=== PATIENT | female | born 1990 | race Caucasian/White ===

== ENCOUNTER 2024-03-12 14:45 | Emergency (ER) | payer OTHER ==
[2024-03-12 15:11] VITALS: TEMP 98.3
--- NOTE | 2024-03-12 16:23 | ED ---
Abdominal Pain HPI - General Source: patient, RN notes reviewed Mode of arrival: ambulatory Limitations: no limitations <Acacia Hubbard - Last Filed: 03/12/24 16:26> - General Source: patient, RN notes reviewed Mode of arrival: ambulatory Limitations: no limitations <Fatemeh Delgado - Last Filed: 03/16/24 11:54> - General Chief Complaint: Abdominal Pain Stated Complaint: Back pain, ABD Pain Time Seen by Provider: 03/12/24 15:00 - History of Present Illness Initial Comments: Quick noteis a 33-year-old female who presents emergency department chief complaint of abdominal and back pain. Patient states that she also is experiencing a large amount of vaginal bleeding that started this afternoon, and her last menstrual cycle was 1.5 weeks ago. Patient has a history of 3 spontaneous abortions and 2 stillbirths. (Acacia Hubbard) 33-year-old female presents to the emergency department for evaluation of pelvic pain and right-sided back pain starting just prior to arrival. She states that the pain came on fairly suddenly if she started having vaginal bleeding. Patient reports that she just had a menstrual period 1-1/2 weeks ago it is concerned because she is not due to be after cycle. She is currently on oral contraceptives to help with period regulation. She has significant gynecological history including 3 spontaneous abortions, 2 stillbirth, right- sided ovarian torsion. She states that the pain today does not resemble her prior torsion. She denies fever, chills, nausea, vomiting. (Fatemeh Delgado) - Related Data Allergies Allergy/AdvReac Type Severity Reaction Status Date / Time tramadol Allergy Anaphylaxis Verified 03/12/24 14:49 Review of Systems ROS Other: All systems not noted in ROS Statement are negative. <Acacia Hubbard - Last Filed: 03/12/24 16:26> ROS Other: All systems not noted in ROS Statement are negative. <Fatemeh Delgado - Last Filed: 03/16/24 11:54> ROS Statement: Those systems with pertinent positive or pertinent negative responses have been documented in the HPI. Past Medical History Past Medical History: Asthma, Diabetes Mellitus, Hypertension Additional Past Medical History / Comment(s): PTOS History of Any Multi-Drug Resistant Organisms: None Reported Past Surgical History: Tubal Ligation Past Psychological History: No Psychological Hx Reported Smoking Status: Current some day smoker Past Alcohol Use History: None Reported Past Drug Use History: None Reported <Klaudia Hubbardoe - Last Filed: 03/12/24 16:26> General Exam Limitations: no limitations <Klaudia Hubbardoe - Last Filed: 03/12/24 16:26> Limitations: no limitations General appearance: alert, in no apparent distress Head exam: Present: atraumatic, normocephalic, normal inspection Eye exam: Present: normal appearance, PERRL, EOMI. Absent: scleral icterus, conjunctival injection, periorbital swelling ENT exam: Present: normal exam, mucous membranes moist Neck exam: Present: normal inspection. Absent: tenderness, meningismus, l ymphadenopathy Respiratory exam: Present: normal lung sounds bilaterally. Absent: respiratory distress, wheezes, rales, rhonchi, stridor Cardiovascular Exam: Present: regular rate, normal rhythm, normal heart sounds. Absent: systolic murmur, diastolic murmur, rubs, gallop, clicks GI/Abdominal exam: Present: soft, normal bowel sounds. Absent: distended, tenderness, guarding, rebound, rigid External exam: Present: normal external exam Speculum exam: Present: vaginal bleeding. Absent: laceration By manual exam: Present: normal by manual exam Extremities exam: Present: normal inspection, full ROM, normal capillary refill. Absent: tenderness, pedal edema, joint swelling, calf tenderness Back exam: Present: normal inspection Neurological exam: Present: alert, oriented X3 Psychiatric exam: Present: normal affect, normal mood Skin exam: Present: warm, dry, intact, normal color. Absent: rash <Fatemeh Delgado - Last Filed: 03/16/24 11:54> - General Exam Comments Initial Comments: Visual Physical Exam Vital signs reviewed General: Well-appearing, nontoxic, no acute distress. Head: Normocephalic, atraumatic Eyes: PERRLA, EOMI ENT: Airway patent Chest: Nonlabored breathing Skin: No visual rash, normal skin tone Neuro: Alert and oriented 3 Musculoskeletal: No gross abnormalities (Stieler,Acacia) Course Vital Signs 03/12/24 03/12/24 14:47 20:25 Temperature 98.3 F Pulse Rate 106 H 83 Respiratory 20 18 Rate Blood Pressure 161/104 155/104 O2 Sat by Pulse 99 99 Oximetry Medical Decision Making <Acacia Hubbard - Last Filed: 03/12/24 16:26> - Lab Data Result diagrams: 03/12/24 16:45 03/12/24 16:45 <Fatemeh Delgado - Last Filed: 03/16/24 11:54> - Medical Decision Making I completed the quick note portion of this chart signed Acacia Hubbard PA-C (Acacia Hubbard) Was pt. sent in by a medical professional or institution (KRISTIAN Madison, MANAGER CATH LAB, urgent care, hospital, or intermediate...) When possible be specific @ -No Did you speak to anyone other than the patient for history (EMS, parent, family, police, friend...)? What history was obtained from this source @ -No Did you review nursing and triage notes (agree or disagree)? Why? @ -I reviewed and agree with nursing and triage notes Were old charts reviewed (outside hosp., previous admission, EMS record, old EKG, old radiological studies, urgent care reports/EKG's, intermediate records)? Report findings @ -No old charts were reviewed Differential Diagnosis (chest pain, altered mental status, abdominal pain women, abdominal pain men, vaginal bleeding, weakness, fever, dyspnea, syncope, headache, dizziness, GI bleed, back pain, seizure, CVA, palpatations, mental health, musculoskeletal)? @ -Differential Vaginal Bleeding: Spontaneous , threatened , molar , ectopic , bloody show, incompetent cervix, abruptioplacenta, placenta previa, uterine rupture, dysfunctional uterine bleeding, hemorrhage, uterine fibroids, this is not meant to be an all-inclusive list. EKG interpreted by me (3pts min.). @ -None X-rays interpreted by me (1pt min.). @ -None done CT interpreted by me (1pt min.). @ -None done U/S interpreted by me (1pt. min.). @ -Pelvic ultrasound obtained which shows no evidence of torsion or free fluid What testing was considered but not performed or refused? (CT, X-rays, U/S, labs)? Why? @ -None What meds were considered but not given or refused? Why? @ -None Did you discuss the management of the patient with other professionals (professionals i.e. KRISTIAN Madison, MANAGER CATH LAB, lab, RT, psych nurse, director of social work, paint grinder [employer], teacher, surveillance officer, shelter case manager)? Give summary @ -Management discussed with CADD OPERATOR, Dr. Abad who believes patient can follow up in the office. Was smoking cessation discussed for >3mins.? @ -No Was critical care preformed (if so, how long)? @ -No Were there social determinants of health that impacted care today? How? (Homelessness, low income, unemployed, alcoholism, drug addiction, transportation, low edu. Level, literacy, decrease access to med. care, skilled nursing, rehab)? @ -No Was there de-escalation of care discussed even if they declined (Discuss DNR or withdrawal of care, Hospice)? DNR status @ -No What co-morbidities impacted this encounter? (DM, HTN, Smoking, COPD, CAD, Cancer, CVA, ARF, Chemo, Hep., AIDS, mental health diagnosis, sleep apnea, morbid obesity)? @ -None Was patient admitted / discharged? Hospital course, mention meds given and route, prescriptions, significant lab abnormalities, going to OR and other pertinent info. @ -Discharge. Patient presented to the emergency department for evaluation of vaginal bleeding and lower abdominal pain. Laboratory studies obtained Which shows WBC of 12.0; CMP shows very mild transaminitis With normal bilirubin, creatinine 0.75; UA shows trace protein, 2+ glucose, moderate blood likely from vaginal origin. Urine hCG negative. Pelvic ultrasound was obtained which rep orts no evidence of torsion, arterial blood flow present on the right but states that they were unable to assess venous blood flow on the right. Because of this discussed the case with CADD OPERATOR, Dr. Abad, who states that she believes the patient is stable for outpatient follow-up. Discussed findings with patient and advised her to follow-up with her CADD OPERATOR. Patient is understanding agreeable with this plan. Patient stable at time of discharge. Case discussed with Dr. Lenz Undiagnosed new problem with uncertain prognosis? @ -No Drug Therapy requiring intensive monitoring for toxicity (Heparin, Nitro, Insulin, Cardizem)? @ -No Were any procedures done? @ -No Diagnosis/symptom? @ -Vaginal bleeding, abdominal cramping Acute, or Chronic, or Acute on Chronic? @ -Acute Uncomplicated (without systemic symptoms) or Complicated (systemic symptoms)? @ -Uncomplicated Side effects of treatment? @ -No Exacerbation, Progression, or Severe Exacerbation? @ -No Poses a threat to life or bodily function? How? (Chest pain, USA, [place], pneumonia, PE, COPD, DKA, ARF, appy, cholecystitis, CVA, Diverticulitis, Homicidal, Suicidal, threat to staff... and all critical care pts) @ -No (Fatemeh Delgado) - Lab Data Lab Results 03/12/24 03/12/24 03/12/24 Range/Units 16:45 16:45 16:45 WBC 12.0 H (3.8-10.6) k/uL RBC 5.38 (3.80-5.40) m/uL Hgb 15.3 (11.4-16.0) gm/dL Hct 46.8 H (34.0-46.0) % MCV 87.0 (80.0-100.0) fL MCH 28.4 (25.0-35.0) pg MCHC 32.7 (31.0-37.0) g/dL RDW 13.6 (11.5-15.5) % Plt Count 251 (150-450) k/uL MPV 8.0 Neutrophils % 68 % Lymphocytes % 21 % Monocytes % 4 % Eosinophils % 3 % Basophils % 1 % Neutrophils # 8.2 H (1.3-7.7) k/uL Lymphocytes # 2.6 (1.0-4.8) k/uL Monocytes # 0.5 (0-1.0) k/uL Eosinophils # 0.4 (0-0.7) k/uL Basophils # 0.1 (0-0.2) k/uL Sodium (137-145) mmol/L Potassium (3.5-5.1) mmol/L Chloride (98-107) mmol/L Carbon Dioxide (22-30) mmol/L Anion Gap mmol/L BUN (7-17) mg/dL Creatinine (0.52-1.04) mg/dL Est GFR (CKD-EPI)AfAm (>60 ml/min/1.73 sqM) Est GFR (CKD-EPI)NonAf (>60 ml/min/1.73 sqM) Glucose (74-99) mg/dL POC Glucose (mg/dL) (70-110) mg/dL POC Glu Snuff Grinder ID Calcium (8.4-10.2) mg/dL Total Bilirubin (0.2-1.3) mg/dL AST (14-36) U/L ALT (4-34) U/L Alkaline Phosphatase (38-126) U/L Total Protein (6.3-8.2) g/dL Albumin (3.5-5.0) g/dL Urine Color Yellow Urine Appearance Clear (Clear) Urine pH 5.5 (5.0-8.0) Ur Specific [place] 1.029 (1.001-1.035) Urine Protein Trace H (Negative) Urine Glucose (UA) 2+ H (Negative) Urine Ketones Negative (Negative) Urine Blood Moderate H (Negative) Urine Nitrite Negative (Negative) Urine Bilirubin Negative (Negative) Urine Urobilinogen <2.0 (<2.0) mg/dL Ur Leukocyte Esterase Negative (Negative) Urine RBC >182 H (0-5) /hpf Urine WBC 2 (0-5) /hpf Ur Squamous Epith Cells 2 (0-4) /hpf Hyaline Casts 1 (0-2) /lpf Urine Mucus Few H (None) /hpf Urine HCG, Qual Not Detected (Not Detectd) 03/12/24 03/12/24 Range/Units 16:45 17:19 WBC (3.8-10.6) k/uL RBC (3.80-5.40) m/uL Hgb (11.4-16.0) gm/dL Hct (34.0-46.0) % MCV (80.0-100.0) fL MCH (25.0-35.0) pg MCHC (31.0-37.0) g/dL RDW (11.5-15.5) % Plt Count (150-450) k/uL MPV Neutrophils % % Lymphocytes % % Monocytes % % Eosinophils % % Basophils % % Neutrophils # (1.3-7.7) k/uL Lymphocytes # (1.0-4.8) k/uL Monocytes # (0-1.0) k/uL Eosinophils # (0-0.7) k/uL Basophils # (0-0.2) k/uL Sodium 139 (137-145) mmol/L Potassium 4.3 (3.5-5.1) mmol/L Chloride 110 H (98-107) mmol/L Carbon Dioxide 20 L (22-30) mmol/L Anion Gap 9 mmol/L BUN 11 (7-17) mg/dL Creatinine 0.75 (0.52-1.04) mg/dL Est GFR (CKD-EPI)AfAm >90 (>60 ml/min/1.73 sqM) Est GFR (CKD-EPI)NonAf >90 (>60 ml/min/1.73 sqM) Glucose 120 H (74-99) mg/dL POC Glucose (mg/dL) 117 H (70-110) mg/dL POC Glu Snuff Grinder Anastacio Crum Calcium 9.5 (8.4-10.2) mg/dL Total Bilirubin 0.7 (0.2-1.3) mg/dL AST 40 H (14-36) U/L ALT 44 H (4-34) U/L Alkaline Phosphatase 62 (38-126) U/L Total Protein 7.3 (6.3-8.2) g/dL Albumin 4.3 (3.5-5.0) g/dL Urine Color Urine Appearance (Clear) Urine pH (5.0-8.0) Ur Specific [place] (1.001-1.035) Urine Protein (Negative) Urine Glucose (UA) (Negative) Urine Ketones (Negative) Urine Blood (Negative) Urine Nitrite (Negative) Urine Bilirubin (Negative) Urine Urobilinogen (<2.0) mg/dL Ur Leukocyte Esterase (Negative) Urine RBC (0-5) /hpf Urine WBC (0-5) /hpf Ur Squamous Epith Cells (0-4) /hpf Hyaline Casts (0-2) /lpf Urine Mucus (None) /hpf Urine HCG, Qual (Not Detectd) Disposition <Acacia Hubbard - Last Filed: 03/12/24 16:26> Is patient prescribed a controlled substance at d/c from ED?: No <Fatemeh Delgado - Last Filed: 03/16/24 11:54> Clinical Impression: Vaginal bleeding, Pelvic pain Disposition: HOME SELF-CARE Condition: Stable Instructions (If sedation given, give patient instructions): Pelvic Pain in Women (ED) Additional Instructions: Please follow up with CADD OPERATOR. Return to the emergency department for new or worsening symptoms. Referrals: Nonstaff,Physician [Primary Care Provider] - 1-2 days
[2024-03-12 17:26] LABS: Glucose,Whole Blood 117 mg/dL (70-110)
[2024-03-12 17:40] LABS: Basophils # (A) 0.1 k/uL (0-0.2); Basophils % (A) 1 %; Eosinophils # (A) 0.4 k/uL (0-0.7); Eosinophils % (A) 3 %; HCT 46.8 % (34.0-46.0); HGB 15.3 gm/dL (11.4-16.0); Lymphocytes # (A) 2.6 k/uL (1.0-4.8); Lymphocytes % (A) 21 %; MCH 28.4 pg (25.0-35.0); MCHC 32.7 g/dL (31.0-37.0); Monocytes # (A) 0.5 k/uL (0-1.0); Monocytes % (A) 4 %; Neutrophils # (A) 8.2 k/uL (1.3-7.7); Neutrophils % (A) 68 %; Platelet Count 251 k/uL (150-450); RBC 5.38 m/uL (3.80-5.40); RDW 13.6 % (11.5-15.5)
--- NOTE | 2024-03-12 17:52 | US ---
EXAMINATION TYPE: US pelvis complete transvag DATE OF EXAM: 03/12/2024 COMPARISON: NONE CLINICAL INDICATION: Female, 33 years old with history of vaginal bleeding, history of ; Blee ding x 1 day TECHNIQUE: Transvaginal ER exam Date of LMP: 1 weeks ago EXAM MEASUREMENTS: Uterus: 7.7 x 5.2 x 6.3 cm Endometrial Stripe: 1.1 cm Right Ovary: 3.2 x 3.2 x 2.5 cm Left Ovary: 4.2 x 3.4 x 2.9 cm 1. Uterus: retroverted, mildly heterogeneous 2. Endometrium: thickened for patient's LMP 3. Right Ovary: wnl 4. Left Ovary: wnl Spectral, color and waveform doppler imaging shows good arterial and venous flow within the left ov maco and good arterial flow within the right ovary, unable to obtain venous flow within the right ovar y. 5. Bilateral Adnexa: wnl 6. Posterior cul-de-sac: wnl IMPRESSION: 1. Normal uterus and endometrium. 2. No adnexal masses or torsion. 3. No free fluid in the cul-de-sac
[2024-03-12 18:00] LABS: ALT 44 U/L (4-34); AST 40 U/L (14-36); African American GFR (CKD) >90 (>60 ml/min/1.73 sqM); Albumin 4.3 g/dL (3.5-5.0); Alkaline Phosphatase 62 U/L (38-126); Anion Gap 9 mmol/L; Blood Urea Nitrogen 11 mg/dL (7-17); Calcium 9.5 mg/dL (8.4-10.2); Carbon Dioxide 20 mmol/L (22-30); Chloride 110 mmol/L (98-107); Glucose 120 mg/dL (74-99); Non-African American GFR(CKD) >90 (>60 ml/min/1.73 sqM); Potassium 4.3 mmol/L (3.5-5.1); Sodium 139 mmol/L (137-145); Total Bilirubin 0.7 mg/dL (0.2-1.3); Total Protein 7.3 g/dL (6.3-8.2)
[2024-03-12 18:09] LABS: Appearance,Urine Clear (Clear); Bilirubin,Urine Negative (Negative); Blood,Urine Moderate (Negative); Color,Urine Yellow; Glucose,Urine (UA) 2+ (Negative); Hyaline Casts,Urine 1 /lpf (0-2); Ketones,Urine Negative (Negative); Leukocyte Esterase,Urine Negative (Negative); Mucus,Urine Few /hpf; Nitrite,Urine Negative (Negative); PH, Urine 5.5 (5.0-8.0); Protein,Urine Trace (Negative); RBC,Urine >182 /hpf (0-5); Specific Gravity,Urine 1.029 (1.001-1.035); Squamous Epithelial Cell,Urine 2 /hpf (0-4); Urobilinogen,Urine <2.0 mg/dL (<2.0); WBC,Urine 2 /hpf (0-5)
[2024-03-12] MEDS: ACETAMINOPHEN TAB 500 MG TAB PO STA (18:11)
[2024-03-12] MEDS: ONDANSETRON 4 MG/2 ML VIAL IVP STA (18:11)
[2024-03-12] MEDS: LIDOCAINE 4% PATCH TOPICAL ONE (18:12)
[2024-03-12] MEDS: SODIUM CHLORIDE 0.9% 2,000 ML IV ONE (18:13)
[2024-03-12 21:05] VITALS: BP 155/104; PULSE 83; RESP 18
== END 2024-03-12 20:36 | disposition home or self-care (01) ==
LOC: EC 14:45
DX: N93.9 Abnormal uterine and vaginal bleeding, unspecified (principal); F17.200 Nicotine dependence, unspecified, uncomplicated; Z88.5 Allergy status to narcotic agent
CPT/HCPCS: 36415; 76830; 80053; 81001; 81025; 85025; 93975; 96361; 96374; 99284

== ENCOUNTER 2025-05-17 13:08 | Emergency (ER) | payer OTHER ==
[2025-05-17 13:38] VITALS: BP 157/94; PULSE 90; RESP 16; TEMP 98.5
--- NOTE | 2025-05-17 13:38 | ED ---
General Adult HPI - General Stated complaint: Abd Pain Time Seen by Provider: 05/17/25 13:35 - History of Present Illness Initial comments: Dictation was produced using [employer] dictation software. please excuse any grammatical, word or spelling errors. Chief Complaint: 35-year-old female with ovarian pain History of Present Illness: Patient 35-year-old female with history of right ovarian cyst. Most recent ultrasound was April 04. She states that she has a ovarian cyst that measured at 7 cm. States that this episode has been going for the last few days. No fever chills or night sweats. Still has her appendix. Denies any fever chills or night sweats. Patient is dissatisfied with her senior production planner because she allegedly does not qualify for oophorectomy surgery. The ROS documented in this emergency department record has been reviewed and c onfirmed by me. Those systems with pertinent positive or negative responses have been documented in the HPI. All other systems are other negative and/or noncontributory. - Related Data Previous Rx's Medication Instructions Recorded HYDROcodone/APAP 5-325MG [Snelling 1 tab PO Q6HR PRN 3 Days #12 tab 05/17/25 5-325] Allergies Allergy/AdvReac Type Severity Reaction Status Date / Time tramadol Allergy Anaphylaxis Verified 03/12/24 14:49 Review of Systems ROS Statement: Those systems with pertinent positive or pertinent negative responses have been documented in the HPI. ROS Other: All systems not noted in ROS Statement are negative. Past Medical History Past Medical History: Asthma, Diabetes Mellitus, Hypertension Additional Past Medical History / Comment(s): PTOS History of Any Multi-Drug Resistant Organisms: None Reported Past Surgical History: Tubal Ligation Past Psychological History: No Psychological Hx Reported Smoking Status: Current some day smoker Past Alcohol Use History: None Reported Past Drug Use History: None Reported General Exam - General Exam Comments Initial Comments: PHYSICAL EXAM: General Impression: Alert and oriented x3, not in acute distress HEENT: Normocephalic atraumatic, extra-ocular movements intact, pupils equal and reactive to light bilaterally, mucous membranes moist. Cardiovascular: Heart regular rate and rhythm Chest: Able to complete full sentences, no retractions, no tachypnea Abdomen: abdomen soft, tenderness at right lower quadrant, non-distended, no organomegaly Musculoskeletal: Pulses present and equal in all extremities, no peripheral edema Motor: no focal deficits noted Neurological: CN II-XII grossly intact, no focal motor or sensory deficits noted Skin: Intact with no visualized rashes Psych: Normal affect and mood Course Vital Signs 05/17/25 13:36 Temperature 98.5 F Pulse Rate 90 Respiratory 16 Rate Blood Pressure 157/94 O2 Sat by Pulse 99 Oximetry Medical Decision Making - Medical Decision Making Was pt. sent in by a medical professional or institution (, PA, CORPORATE LAW ASSISTANT, urgent care, hospital, or [facility]...) When possible be specific @ -No Did you speak to anyone other than the patient for history (EMS, parent, family, police, friend...)? What history was obtained from this source @ -No Did you review nursing and triage notes (agree or disagree)? Why? @ -I reviewed and agree with nursing and triage notes Were old charts reviewed (outside hosp., previous admission, EMS record, old EKG, old radiological studies, urgent care reports/EKG's, [facility] records)? Report findings @ -No old charts were reviewed Differential Diagnosis (chest pain, altered mental status, abdominal pain women, abdominal pain men, vaginal bleeding, musculoskeletal, weakness, fever, dyspnea, syncope, headache, dizziness, GI bleed, back pain, seizure, CVA, palpatations, mental health)? @ -Abdominal Pain Women: Appendicitis, Cholecystitis, diverticulosis, ischemic bowel, pancreatitis, hepatitis, UTI, gastroenteritis, AAA, incarcerated hernia, bowel obstruction, constipation, inflammatory bowel, hepatitis, peptic ulcer disease, splenic infarction, perforated viscus, vulvitis, ovarian torsion, PID, kidney stone, placenta abruption, this is not meant to be an all-inclusive list EKG interpreted by me (3pts min.). @ -None done X-rays interpreted by me (1pt min.). @ -None done CT interpreted by me (1pt min.). @ -None done U/S interpreted by me (1pt. min.). @ -Ultrasound shows 2 cm right ovarian cyst What testing was considered but not performed or refused? (CT, X-rays, U/S, labs)? Why? @ -None What meds were considered but not given or refused? Why? @ -None Was smoking cessation discussed for >3mins.? @ -No Were there social determinants of health that impacted care today? How? (Homelessness, low income, unemployed, alcoholism, drug addiction, transportation, low edu. Level, literacy, decrease access to med. care, custodial, rehab)? @ -No Was there de-escalation of care discussed even if they declined (Discuss DNR or withdrawal of care, Hospice)? DNR status @ -No What co-morbidities impacted this encounter? (DM, HTN, Smoking, COPD, CAD, Cancer, CVA, ARF, Chemo, Hep., AIDS, mental health diagnosis, sleep apnea, morbid obesity)? @ -Right ovarian cyst Was patient admitted / discharged? Hospital course, mention meds given and route, prescriptions, significant lab abnormalities, going to OR and other pertinent info. @ -35-year-old female presents to the emergency department with acute on chronic right ovarian cyst pain. Patient states she gets these symptoms regularly. Denies any history of appendectomy. Vital signs stable. Denies any fever chills or other GI symptoms. Patient has tender palpation to the right lower quadrant. Labs show slight leukocytosis of 13. Metabolic panel is unremarkable. test negative. Ultrasound shows right ovarian cyst measuring 2 cm. Patient observed emergency department for approximately 2 hours and 20 minutes. Reevaluated bedside at 3:30 PM found to be stable to condition. Unlikely to be acute appendicitis given that patient reports that this is her usual pain. Furthermore she is not having any constitutional symptoms. Did you discuss the management of the patient with other professionals (professionals i.e. , PA, CORPORATE LAW ASSISTANT, lab, RT, psych nurse, group social worker, exercise instructor, teacher, vessel traffic officer, case maker)? Give summary @ -No Was critical care preformed (if so, how long)? @ -No Undiagnosed new problem with uncertain prognosis? @ -No Drug Therapy requiring intensive monitoring for toxicity (Heparin, Nitro, Insulin, Cardizem)? @ -No Were any procedures done? @ -No Diagnosis/symptom? Acute, or Chronic, or Acute on Chronic? Uncomplicated (without systemic symptoms) or Complicated (systemic symptoms)? @ -Painful right ovarian cyst Side effects of treatment? @ -No Exacerbation, Progression, or Severe Exacerbation? @ -No Poses a threat to life or bodily function? How? (Chest pain, USA, [place], pneumonia, PE, COPD, DKA, ARF, appy, cholecystitis, CVA, Diverticulitis, Homicidal, Suicidal, threat to staff... and all critical care pts) @ -yes - Lab Data Result diagrams: 05/17/25 13:50 05/17/25 13:50 Lab Results 05/17/25 05/17/25 Range/Units 13:50 13:50 WBC 13.08 H (4.50-10.00) 10*3/uL RBC 4.78 (4.10-5.20) 10*6/uL Hgb 14.6 (12.0-15.0) g/dL Hct 41.7 (37.2-46.3) % MCV 87.2 (80.0-97.0) fL MCH 30.5 (27.0-32.0) pg MCHC 35.0 (32.0-37.0) g/dL Plt Count 284 (140-440) 10*3/uL MPV 10.8 (9.5-12.2) fL Immature Gran % (Auto) 0.3 % Neutrophils % 64.7 % Lymphocytes % 23.5 % Monocytes % 6.3 % Eosinophils % 4.4 % Basophils % 0.8 % Immature Gran # 0.04 (0.00-0.04) 10*3/uL Neutrophils # 8.48 H (1.80-7.70) 10*3/uL Lymphocytes # 3.07 (0.90-5.00) 10*3/uL Monocytes # 0.82 (0.20-1.00) 10*3/uL Eosinophils # 0.57 H (0.04-0.35) 10*3/uL Basophils # 0.10 (0.00-0.10) 10*3/uL Sodium 139 (137-145) mmol/L Potassium 4.5 (3.5-5.1) mmol/L Chloride 105 (98-107) mmol/L Carbon Dioxide 21 L (22-30) mmol/L Anion Gap 13 mmol/L BUN 20 H (7-17) mg/dL Creatinine 0.94 (0.52-1.04) mg/dL Est GFR (CKD-EPI)AfAm 90 (>60 ml/min/1.73 sqM) Est GFR (CKD-EPI)NonAf 78 (>60 ml/min/1.73 sqM) Glucose 76 (74-99) mg/dL Calcium 10.2 (8.4-10.2) mg/dL Total Bilirubin 0.5 (0.2-1.3) mg/dL AST 23 (14-36) U/L ALT 23 (4-34) U/L Alkaline Phosphatase 55 (38-126) U/L Total Protein 7.5 (6.3-8.2) g/dL Albumin 4.7 (3.5-5.0) g/dL Lipase 127 (23-300) U/L HCG, Quant <2.4 mIU/mL Disposition Clinical Impression: Ovarian cyst Disposition: HOME SELF-CARE Condition: Fair Instructions (If sedation given, give patient instructions): Ovarian Cyst (ED) Prescriptions: HYDROcodone/APAP 5-325MG [Snelling 5-325] 1 tab PO Q6HR PRN 3 Days #12 tab PRN Reason: Severe Pain Is patient prescribed a controlled substance at d/c from ED?: Yes If prescribed controlled substance>3 days was MAPS reviewed?: Prescribed <3 Days Referrals: Medina Landrum FNPBC [Primary Care Provider] - 1-2 days Time of Disposition: 15:29
[2025-05-17 14:01] LABS: Basophils % (A) 0.8 %; Eosinophils # (A) 0.57 10*3/uL (0.04-0.35); Eosinophils % (A) 4.4 %; HCT 41.7 % (37.2-46.3); HGB 14.6 g/dL (12.0-15.0); Lymphocytes # (A) 3.07 10*3/uL (0.90-5.00); Lymphocytes % (A) 23.5 %; MCH 30.5 pg (27.0-32.0); MCV 87.2 fL (80.0-97.0); Mean Platelet Volume 10.8 fL (9.5-12.2); Monocytes # (A) 0.82 10*3/uL (0.20-1.00); Monocytes % (A) 6.3 %; Neutrophils # (A) 8.48 10*3/uL (1.80-7.70); Neutrophils % (A) 64.7 %; Platelet Count 284 10*3/uL (140-440); RBC 4.78 10*6/uL (4.10-5.20); RDW 12.7 % (11.5-14.5); WBC 13.08 10*3/uL (4.50-10.00)
[2025-05-17 14:13] LABS: ALT 23 U/L (4-34); AST 23 U/L (14-36); African American GFR (CKD) 90 (>60 ml/min/1.73 sqM); Albumin 4.7 g/dL (3.5-5.0); Alkaline Phosphatase 55 U/L (38-126); Anion Gap 13 mmol/L; Blood Urea Nitrogen 20 mg/dL (7-17); Calcium 10.2 mg/dL (8.4-10.2); Carbon Dioxide 21 mmol/L (22-30); Chloride 105 mmol/L (98-107); Glucose 76 mg/dL (74-99); Lipase 127 U/L (23-300); Non-African American GFR(CKD) 78 (>60 ml/min/1.73 sqM); Potassium 4.5 mmol/L (3.5-5.1); Sodium 139 mmol/L (137-145); Total Bilirubin 0.5 mg/dL (0.2-1.3); Total Protein 7.5 g/dL (6.3-8.2)
[2025-05-17 14:29] LABS: HCG,Quantitative Serum <2.4 mIU/mL
--- NOTE | 2025-05-17 14:51 | US ---
EXAMINATION TYPE: US transvaginal DATE OF EXAM: 05/17/2025 COMPARISON: 03/12/24 CLINICAL INDICATION: Female, 35 years old with history of right LQ pain; RLQ pain. Hx of ovarian cyst s TECHNIQUE: Transvaginal (TV). Doppler imaging: Color Doppler Images were obtained. Spectral doppler images were obtained. FINDINGS: Date of LMP: a year ago. Pt has PCOS EXAM MEASUREMENTS: Uterus: 7.4 x 5.8 x 4.7 cm Endometrial Stripe: 0.3 cm Right Ovary: 3.6 x 3.6 x 1.8 cm Left Ovary: 4.1 x 2.7 x 2.6 cm 1. Uterus: Retroverted possible fluid in cervical canal 2. Endometrium: appears wnl 3. Right Ovary: cystic area with irregular margins seen measuring 2.0 x 2.0 x 1.3cm 4. Left Ovary: wnl Spectral, color and waveform doppler imaging shows good arterial and venous flow within the ovaries ; there is no evidence for ovarian torsion. 5. Bilateral Adnexa: trace amount of free fluid in right adnexa adjacent to ovary 6. Posterior cul-de-sac: wnl IMPRESSION: 1. Complex cyst right ovary. Consider 6 month follow-up O-RADS 2021 [email or web address] [facility], , 05/17/2025 2:49 PM
[2025-05-17] MEDS: KETOROLAC 15 MG/ML 1 ML VIAL IVP STA (16:39)
== END 2025-05-17 16:44 | disposition home or self-care (01) ==
LOC: EC 13:08
DX: N83.201 Unspecified ovarian cyst, right side (principal); F17.200 Nicotine dependence, unspecified, uncomplicated; Z88.5 Allergy status to narcotic agent
CPT/HCPCS: 36415; 80053; 83690; 85025; 84702; 93975; 76830; 99284; 96374; J1885